=== PATIENT | male | born 1970 | race American Indian/Alaskan Native ===

== ENCOUNTER 2017-05-01 14:07 | Emergency (ER) | payer OTHER ==
[2017-05-01 14:47] LABS: Urine Drugs of Abuse Note Disclamer
[2017-05-01 15:05] LABS: Bilirubin,Urine NEG (Negative); Blood,Urine NEG (Negative); Ketones,Urine NEG (Negative); Leukocyte Esterase,Urine MOD (Negative); Mucus,Urine 3+ /HPF; Nitrite,Urine NEG (Negative); Urobilinogen,Urine < 2.0 mg/dL (<2.0)
[2017-05-01 15:14] LABS: Basophils % (Auto) 0.1 % (0.0-1.8); Eosinophils % (Auto) 0.5 % (0.0-4.3); Hematocrit 43.7 % (35.5-45.6); Hemoglobin 14.6 gm/dl (11.8-15.2); Mean Corpuscular HGB Conc 33 % (32-34); Mean Corpuscular Hemoglobin 32 pg (28-32); Mean Corpuscular Volume 95 fl (84-94); Platelet Count 203 K/mm3 (140-440); Red Cell Distribution Width 13.8 % (13.2-15.2)
[2017-05-01 15:17] LABS: Anion Gap 15 mmol/L; BUN/Creatinine Ratio 16.66; Blood Urea Nitrogen 15 mg/dL (9-20); Calcium 9.1 mg/dL (8.4-10.2); Carbon Dioxide 27 mmol/L (22-30); Chloride 100.6 mmol/L (98-107); Glucose 89 mg/dL (75-100); Sodium 139 mmol/L (137-145)
--- NOTE | 2017-05-02 09:46 | Emergency Department Report ---
HPI - General Chief Complaint: Psych Time Seen by Provider: 05/02/17 08:50 - HPI HPI: This is a 46-year-old Afro-[place]vian male presents to the emergency department with a complaint of needing a mental health evaluation and hoping to get help for his drug addictions. The patient has a history of schizophrenia and stopped taking his medications about 6 months ago. He admits to some intermittent auditory hallucinations but denies any visual hallucinations. He says that his psychiatric illness and his drug addictions have gone to the point where he has lost his job and is going through a divorce. He admits to using methamphetamine, cocaine and marijuana, last using them 24 hours ago. He does not have a primary care physician or a psychiatrist. While the patient is not currently combative he says that he does have an anger problem. ED Past Medical Hx - Past Medical History Previous Medical History?: Yes Hx Psychiatric Treatment: Yes (drug use) - Surgical History Past Surgical History?: Yes Additional Surgical History: L knee surgery - Social History Smoking Status: Current Every Day Smoker Substance Use Type: Alcohol, Cocaine, Marijuana, Prescribed - Medications Home Medications: Home Medications Medication Instructions Recorded Confirmed Last Taken Type Escitalopram Oxalate [Lexapro] 5 mg PO QDAY 07/08/16 07/08/16 Unknown History Quetiapine Fumarate [SEROquel] 50 mg PO QDAY 07/08/16 07/08/16 Unknown History Sulfamethoxazole/Trimethoprim 1 each PO BID #14 tablet 07/08/16 Unknown Rx [Bactrim DS TAB] risperiDONE [RisperDAL] 2 mg PO QDAY 07/08/16 07/08/16 Unknown History ED Review of Systems ROS: Stated complaint: MH EVAL Other details as noted in HPI Comment: All other systems reviewed and negative Constitutional: denies: chills, fever Eyes: denies: eye pain, eye discharge, vision change ENT: denies: ear pain, throat pain Respiratory: denies: cough, shortness of breath, wheezing Cardiovascular: denies: chest pain, palpitations Gastrointestinal: denies: abdominal pain, nausea, diarrhea Genitourinary: denies: urgency, dysuria Musculoskeletal: denies: back pain, joint swelling, arthralgia Neurological: denies: headache, weakness, paresthesias Psychiatric: auditory hallucinations. denies: visual hallucinations Physical Exam - Physical Exam Vital Signs: Vital Signs 05/01/17 05/02/17 14:12 09:15 Temperature 98.5 F 98.7 F Pulse Rate 90 57 L Respiratory 18 16 Rate Blood Pressure 135/89 Blood Pressure 135/83 [Right] O2 Sat by Pulse 99 98 Oximetry Physical Exam: GENERAL: The patient is well-developed well-nourished. HEENT: Normocephalic. Atraumatic. Extraocular motions are intact. Patient has moist mucous membranes. Pupils equal reactive to light bilaterally. NECK: Supple. Trachea is midline. CHEST/LUNGS: Clear to auscultation. There is no respiratory distress noted. HEART/CARDIOVASCULAR: Regular. There is no tachycardia. There is no gallop rub or murmur. ABDOMEN: Abdomen is soft, nontender. Patient has normal bowel sounds. There is no abdominal distention. SKIN: Skin is warm and dry. NEURO: The patient is awake, alert, and oriented. The patient is cooperative. The patient has no focal neurologic deficits. The patient has normal speech. MUSCULOSKELETAL: There is no tenderness or deformity. There is no limitation range of motion. There is no evidence of acute injury. PSYCH: Patient has a flat affect. ED Course Vital Signs 05/01/17 05/02/17 14:12 09:15 Temperature 98.5 F 98.7 F Pulse Rate 90 57 L Respiratory 18 16 Rate Blood Pressure 135/89 Blood Pressure 135/83 [Right] O2 Sat by Pulse 99 98 Oximetry ED Medical Decision Making - Lab Data Result diagrams: 05/01/17 14:40 05/01/17 14:40 - Medical Decision Making 46 year male presents to the emergency department with the complaint of polysubstance dependence and abuse as well as issues with depression, anger management, and some occasional auditory hallucinations. The patient came on his own accord trying to receive help. He does not appear acutely intoxicated. He has been here since yesterday afternoon. Labs are mostly unremarkable except for the positive urine drug screen which shows methamphetamines, cocaine and marijuana. Vital signs stable throughout his ED course. The patient was seen by the crisis therapist who is going to help and placement for a voluntary admission for substance abuse and most likely psychiatric care as well. The patient is medically cleared for this placement. - Differential Diagnosis schizophrenia, bipolar disorder, depression, substance abuse Critical Care Time: No Critical care attestation.: If time is entered above; I have spent that time in minutes in the direct care of this critically ill patient, excluding procedure time. ED Disposition Clinical Impression: Polysubstance abuse, History of schizophrenia Depression Qualifiers: Depression Type: unspecified Qualified Code(s): F32.9 - Major depressive disorder, single episode, unspecified Disposition: [id number]/[id number] PSY HOSP/PSY UNIT Is pt being admited?: No Condition: Stable Referrals: PRIMARY CARE [Primary Care Provider] - 3-5 Days Time of Disposition: 13:15
--- NOTE | 2017-05-03 19:31 | Consultation ---
History of Present Illness - Reason for Consult Consult date: 05/03/17 Reason for consult: Mental Health Evaluation Requesting physician: ALISHA RODRIGUEZ - Chief Complaint Chief complaint: "I need help" - History of Present Psychiatric Illness This is a 46-year-old Afro-[place] male presents to the emergency department with a complaint of needing a mental health evaluation and hoping to get help for his drug addictions. Today patient is cooperative and emotional during the assessment. He stated struggling with depression and drug addiction for years. He stated his depression symptoms (hopeless, helplessness, and low self esteem) has been an issue for him since his early 20's. He admit to self medicating with recreational drugs to "take the edge off." He stated being suicidal now with a plan to overdose. He stated that he is suicidal because his life is out of control (lack of finances, marital problems, and being unemployed). He stated that he loaded a gun and put it to his head, but decided not to pull the trigger a year ago. He stated that he hear voices when he is "really" depressed. He stated that the voices has increased lately, but he try to ignore them. He denies HI's VH's. He stated that his sleep can be erratic, but denies a poor appetite. He is positive for amphetamines, cocaine, and marijuana. He stated that he drink alcohol occasionally. Medications and Allergies Allergies Allergy/AdvReac Type Severity Reaction Status Date / Time No Known Allergies Allergy Verified 05/03/17 19:51 Home Medications Medication Instructions Recorded Confirmed Last Taken Type Escitalopram Oxalate [Lexapro] 5 mg PO QDAY 07/08/16 07/08/16 Unknown History Quetiapine Fumarate [SEROquel] 50 mg PO QDAY 07/08/16 07/08/16 Unknown History Sulfamethoxazole/Trimethoprim 1 each PO BID #14 tablet 07/08/16 Unknown Rx [Bactrim DS TAB] risperiDONE [RisperDAL] 2 mg PO QDAY 07/08/16 07/08/16 Unknown History Past psychiatric history - Past Medical History Past Medical History: No medical history Past Surgical History: No surgical history - past Psychiatric treatment and history psychiatric treatment history: Patient stated going to rehab for recreational drugs. He denies any other psy hx. He denies a fam psy hx. - Social History Social history: lives with family ([employer] graduate) Mental Status Exam - Vital signs Last Vital Signs Temp 98.2 F 05/03/17 11:31 Pulse 58 L 05/03/17 11:31 Resp 18 05/03/17 11:31 BP 132/68 05/03/17 11:31 Pulse Ox 100 05/03/17 11:31 - Exam Narrative exam: ROS: (+) depression MSE: Appearance: calm, cooperative, emotional Behavior: poor eye contact Speech: regular rate and tone Mood: "depressed" Affect: flat Thought Process: circumstantial Thought Content: denies HI/SI's and VH's, AH intermittently Motor Activity: ambulatory Cognition: A/Ox 3 Insight: fair Judgment: limited Results Result Diagrams: 05/01/17 14:40 05/01/17 14:40 All other labs normal. Assessment and Plan Assessment and plan: Impression: MDD severe Type with psy fx's, Substance Use DO (amphetamines, cocaine, and marijuana). Today patient is cooperative and emotional during the assessment. He stated struggling with depression and drug addiction for years. Patient had SI's. DDx: R/O Bipolar Recommendation/Plan: Initiated 1013 with placement to inpatient psy services. Start Zoloft 50 mg PO daily for depression and Seroquel 100 mg PO HS for adjutant treatment. Discussed possible suicidality/medication induced arvind with patient reference antidepressants. Discussed possible metabolic side effects with patient reference Seroquel. Discussed the importance to abstain from recreational drug use.
[2017-05-03] MEDS: ZOLOFT PO SCH (21:15)
[2017-05-04] MEDS: ZOLOFT PO SCH (09:47)
[2017-05-05] MEDS: ZOLOFT PO SCH (10:16)
--- NOTE | 2017-05-05 11:15 | Progress Note ---
Subjective - Reason for Consult Consult date: 05/05/17 Reason for consult: Psychiatry Follow-up - Chief Complaint Chief complaint: "Bruna" This is a 46-year-old Afro-Vietnamese male presents to the emergency department with a complaint of needing a mental health evaluation and hoping to get help for his drug addictions. Today patient is calm and cooperative during assessment. He stated having SI's sometimes when he think about his life. Patient is withdrawn with poor eye contact during the assessment. He wouldn't say much when asked questions of him. He denies HI's and AVH's. He stated that he did sleep okay last night. I observed patient eating his breakfast. He denies any side effects of his medications, but refused his Seroquel last night. Mental Status Exam - Vital signs Last Vital Signs Temp 98 F 05/05/17 07:20 Pulse 84 05/05/17 07:20 Resp 18 05/05/17 07:20 BP 138/81 05/05/17 07:20 Pulse Ox 99 05/05/17 07:20 - Exam Narrative exam: MSE: Appearance: calm, cooperative Behavior: poor eye contact Speech: regular rate and tone Mood: "so so" withdrawn Affect: flat Thought Process: circumstantial Thought Content: denies HI/SI's and AVH's Motor Activity: ambulatory Cognition: A/Ox 3 Insight: limited Judgment: limited Assessment and Plan Impression: MDD severe Type with psy fx's, Substance Use DO (amphetamines, cocaine, and marijuana). Today patient is calm and cooperative during the assessment. Passive SI's. Recommendation/Plan: Continue 1013 with placement to inpatient psy services. Continue Zoloft 50 mg PO daily for depression and Seroquel 100 mg PO HS for adjutant treatment. Discussed possible suicidality/medication induced arvind with patient reference antidepressants. Discussed possible metabolic side effects with patient reference Seroquel. Discussed the importance to abstain from recreational drug use with patient. Discussed generalized coping skills with patient.
--- NOTE | 2017-05-05 12:22 | Consultation ---
History of Present Illness - Reason for Consult Consult date: 05/05/17 Reason for consult: Mental Health Evaluation - Chief Complaint Chief complaint: "Bruna" This is a 46-year-old Afro-Beninese male presents to the emergency department with a complaint of needing a mental health evaluation and hoping to get help for his drug addictions. Today patient is calm and cooperative during assessment. He stated having SI's sometimes when he think about his life. Patient is withdrawn with poor eye contact during the assessment. He wouldn't say much when asked questions of him. He denies HI's and AVH's. He stated that he did sleep okay last night. I observed patient eating his breakfast. He denies any side effects of his medications, but refused his Seroquel last night. Medications and Allergies Allergies Allergy/AdvReac Type Severity Reaction Status Date / Time No Known Allergies Allergy Verified 05/03/17 19:51 Home Medications Medication Instructions Recorded Confirmed Last Taken Type Escitalopram Oxalate [Lexapro] 5 mg PO QDAY 07/08/16 05/03/17 Unknown History Quetiapine Fumarate [SEROquel] 50 mg PO QDAY 07/08/16 05/03/17 Unknown History Sulfamethoxazole/Trimethoprim 1 each PO BID #14 tablet 07/08/16 05/03/17 Unknown Rx [Bactrim DS TAB] risperiDONE [RisperDAL] 2 mg PO QDAY 07/08/16 05/03/17 Unknown History Active Meds: Active Medications Quetiapine Fumarate (Seroquel) 100 mg PO [facility] Last Admin: 05/04/17 21:43 Dose: Not Given Sertraline HCl (Zoloft) 50 mg PO DAILY [facility] Last Admin: 05/05/17 10:16 Dose: 50 mg Mental Status Exam - Vital signs Last Vital Signs Temp 98 F 05/05/17 07:20 Pulse 84 05/05/17 07:20 Resp 18 05/05/17 07:20 BP 138/81 05/05/17 07:20 Pulse Ox 99 05/05/17 07:20 Results Result Diagrams: 05/01/17 14:40 05/01/17 14:40 All other labs normal.
[2017-05-06] MEDS ORDERED: ZOLOFT ONE (10:35)
[2017-05-06] MEDS: ZOLOFT PO SCH (10:47)
--- NOTE | 2017-05-06 11:20 | Progress Note ---
Subjective - Reason for Consult Consult date: 05/06/17 Reason for consult: Psychiatry Follow-up - Chief Complaint Chief complaint: "My family problems" This is a 46-year-old Afro-Armenian male presents to the emergency department with a complaint of needing a mental health evaluation and hoping to get help for his drug addictions. Today patient is calm and cooperative during assessment. He stated that his home life is "out of control." Patient observed on the phone several times with family members discussing problems. He stated this was his first day not being suicidal. He denies SI/HI's, AVH's, and sleep disturbance. Patient did take seroquel last night. Previous night he refused. Mental Status Exam - Vital signs Last Vital Signs Temp 98.3 F 05/05/17 19:20 Pulse 61 05/05/17 19:20 Resp 16 05/05/17 19:20 BP 131/61 05/05/17 19:20 Pulse Ox 99 05/05/17 19:20 - Exam Narrative exam: MSE: Appearance: calm, cooperative Behavior: poor eye contact Speech: regular rate and tone Mood: "I don't know" withdrawn Affect: flat Thought Process: circumstantial Thought Content: denies HI/SI's and AVH's Motor Activity: ambulatory Cognition: A/Ox 3 Insight: limited Judgment: limited Assessment and Plan Impression: MDD severe Type with psy fx's, Substance Use DO (amphetamines, cocaine, and marijuana). Today patient is calm and cooperative during the assessment. He denies SI/HI's. Recommendation/Plan: Continue 1013 with placement to inpatient psy services. Continue Zoloft 50 mg PO daily for depression and Seroquel 100 mg PO HS for adjutant treatment. Discussed possible suicidality/medication induced arvind with patient reference antidepressants. Discussed possible metabolic side effects with patient reference Seroquel. Discussed the importance to abstain from recreational drug use with patient. Discussed generalized coping skills with patient.
[2017-05-06 21:18] VITALS: BP 136/80
== END 2017-05-06 21:18 ==
LOC: ED 14:07 → EEVIPCON 14:07 → ED 05-06 21:18
DX: F19.10 Other psychoactive substance abuse, uncomplicated (principal); F32.9 Major depressive disorder, single episode, unspecified; F20.9 Schizophrenia, unspecified; F17.200 Nicotine dependence, unspecified, uncomplicated; F12.90 Cannabis use, unspecified, uncomplicated; F14.90 Cocaine use, unspecified, uncomplicated
CPT/HCPCS: 36415; 80048; 80307; 81001; 85025; 99285; G0480; 80320